=== PATIENT | male | born 1935 | race Caucasian/White ===

== ENCOUNTER 2018-11-13 10:35 | Inpatient (IN) | payer MEDICARE ==
[~2018-11-13] VITALS: Ht 177.8 cm; Wt 82.8 kg
[2018-11-13] VITALS (7 sets, daily range): BP systolic 95–121; BP diastolic 48–71
--- NOTE | 2018-11-13 10:35 | NUR ---
PT TO ROOM VIA EMS.
--- NOTE | 2018-11-13 10:43 | NUR ---
PT TO ROOM VIA EMS 911 CALLED BY HOME HEALTH NURSE FOR O2 SATS BEING IN THE 80'S PT GIVEN DUONEB AND 10 MG DEXAMETHASONE BY EMS. PT HAS BILATERAL WHEEZING, PT IS AOX4, DENIES ANY COMPLAINTS AT THIS TIME. DENIES ANY C/P, N/V OR WEAKNESS.
[2018-11-13] MEDS ORDERED: ALLOPURINOL100 MG PO (10:50)
[2018-11-13] MEDS ORDERED: TAMSULOSIN0.4 MG PO (10:50)
[2018-11-13] MEDS ORDERED: LEVOTHYROXIN50 MCG PO (10:51)
[2018-11-13] MEDS ORDERED: ROSUVASTATIN CA10 MG PO (10:51)
[2018-11-13] MEDS ORDERED: MONTELUKAST SOD10 MG PO (10:51)
[2018-11-13] MEDS ORDERED: D3-10001000 UNIT PO (10:52)
[2018-11-13] MEDS ORDERED: ATENOLOL50 MG PO (10:52)
[2018-11-13] MEDS ORDERED: ECOTRIN LOW STR81 MG PO (10:53)
[2018-11-13] MEDS ORDERED: SODIUM BICARBI650 MG PO (10:54)
[2018-11-13] MEDS ORDERED: B COMPLE2 PO (10:54)
[2018-11-13] MEDS ORDERED: ADVAIR DISK1 INH (10:55)
[2018-11-13 11:26] LABS: HEMATOCRIT 40.7 % (39.0-50.0); HEMOGLOBIN 12.6 g/dl (14.0-18.0); IMMATURE GRANULOCYTES 0.6 % (0.0-5.0); MEAN CORPUSCULAR HGB 31.6 pG CALC (26.0-32.0); NEUT# 10.92 thou/uL (1.82-7.42); RED BLOOD COUNT 3.99 mill/uL (4.70-6.10); RED CELL DISTRI WIDTH 13.8 % (11.5-15.5)
[2018-11-13 11:43] LABS: BILIRUBIN, TOTAL 0.6 mg/dL (0.0-1.4); TOTAL PROTEIN 6.3 g/dL (6.3-8.2)
--- NOTE | 2018-11-13 11:43 | NUR ---
BREATHING HAS IMPROVED, WHEEZING HAS DECREASED. NO COMPLAINTS STATED AT THIS TIME.
[2018-11-13 11:56] LABS: ALBUMIN 3.1 g/dL (3.2-5.0); CREATININE 4.5 mg/dL (0.7-1.3); POTASSIUM 5.2 mmol/l (3.5-5.1)
[2018-11-13 12:05] LABS: PROTHROMBIN TIME 10.9 SECONDS (9.0-12.5)
[2018-11-13 12:08] LABS: D-DIMER > 35.20 mg/L (0.19-0.60)
[2018-11-13 12:15] LABS: URINE BILIRUBIN - DIPSTICK NEGATIVE (NEGATIVE); URINE BLOOD DIPSTICK SMALL (NEGATIVE); URINE COLOR YELLOW; URINE GLUCOSE - DIPSTICK NEGATIVE (NEGATIVE); URINE KETONE NEGATIVE (NEGATIVE); URINE LEUK ESTERASE TRACE (NEGATIVE); URINE NITRITE - DIPSTICK NEGATIVE (Negative); URINE PROTEIN - DIPSTICK 30 mg/dL (NEG-TRACE); URINE SPECIFIC GRAVITY >=1.030; URINE UROBILINOGEN - DIPSTICK 0.2 E.U./dL (0.2)
[2018-11-13 12:22] LABS: URINE SQUAMOUS EPITHELIAL CELL FEW EPI/hpf (0-FEW)
[2018-11-13 12:23] LABS: URINE BACTERIA RARE hpf; URINE HYALINE CAST MODERATE lpf (NONE-RARE)
--- NOTE | 2018-11-13 12:42 | NUR ---
SBAR PRINTED TO FLOOR
--- NOTE | 2018-11-13 12:53 | NUR ---
PT RECONNECTED TO MONITOR, IV'S PATENT WITH MEDICATIONS RUNNING.
--- NOTE | 2018-11-13 13:50 | NUR ---
PT RESTING ON STERTCHER, AWAITING ADMISSION
--- NOTE | 2018-11-13 14:10 | NUR ---
PT BROUGHT TO [facility] [employer] FOR SCAN
--- NOTE | 2018-11-13 14:47 | NUR ---
REPORT CALLED TO ODELL PHILLIPS, ACCEPTED PT. AWAITING PT RETURN FROM [facility]
--- NOTE | 2018-11-13 14:59 | NUR ---
Admission Note Report Given to: CARIDAD Transported by: Wheelchair X Stretcher Transported with: X Nurse Transporter X Patent IV X O2 X Section Maintainer TRANSPORTED TO ICU 2 WITHOUT INCIDENT
--- NOTE | 2018-11-13 15:00 | NUR ---
male pt received to ICU bed 2 via stretcher accompanied by Abebe Salas RN in stable condition; pt transferred to bed per nursing staff/ max assist; admission assessment completed at this time; pt alert and oriented; [employer] [place]; c/c of sob and sent per HH nurse; denies pain at current (only with movement); no n/v noted; resp even and unlabored; lungs coarse post upper/ clear anterior; skin color wnl; o2 per nc; hot top liner cough noted; hr reg; strong pulses; left pedal edema noted; sr pac/pvc on monitor; abd soft with bs present; ileostomy present to left abd; pt admits to voiding without complication; no urine to inspect at this time; urinal at bedside; #20 ems site flushed and patent to lac; no redness or edema noted at site; redness noted to coccyx; scattered bruising noted to bue; leg immobilizer noted to left leg; plan of care/ meds explained; call light within reach; will continue to monitor
--- NOTE | 2018-11-13 15:50 | NUR ---
Dr Golden present at bedside at to assess pt and discuss plan of care; family present at bedside; plan of care explained; will continue to monitor pt
--- NOTE | 2018-11-13 16:10 | NUR ---
awake in bed; no apparent distress noted; pt offers no complaints; denies pain; sr pac/pvc on monitor; iv patent; fluids infusing without complication; no redness or edema noted at site; family x2 present at bedside; call light within reach; will continue to monitor
--- NOTE | 2018-11-13 16:27 | NUR ---
Dr Golden has spoken with US tech; ultrasound to be done tomorrow 11/14/18
--- NOTE | 2018-11-13 18:06 | NUR ---
awake in bed; no apparent distress noted; pt offers no complaints; iv patent; no redness or edema noted at site; sr/pvc on monitor; call light within reach
--- NOTE | 2018-11-13 19:30 | NUR ---
REPORT RECEIVED FROM ALAN BAIN. PT RESTING IN BED HIGH FOWLERS; ALERT AND ORIENTED X 4. DENIES PAIN, BUT DOES C/O SOME ABDOMINAL TENDERNESS DURING PALPATION AND DISCOMFORT WHEN HE MOVES HIS LEFT LEG; DECLINES PAIN MEDICATION AT THIS TIME. RESPIRATIONS EVEN AND UNLABORED ON OXYGEN 3L VIA NC; PT STATES THAT HIS BREATHING HAS IMPROVED. PERRLA. LUNGS HAVE EXPIRATORY WHEEZING ANTERIORLY. HEART RATE IRREGULAR; SINUS RHYTHM WITH FREQUENT PVS'S ON TELEMETRY. ABDOMEN DISTENDED AND SOFT; ILEOSTOMY TO RLQ. IMMOBILIZER TO LLE; TRACE EDEMA TO LEFT ANKLE; WEAK PEDAL PULSES BILATERALLY WITH SLUGGISH CAP REFILL. SCATTERED BRUISING TO SKIN AND SKIN TEARS TO RIGHT HAND AND RIGHT ELBOW THAT ARE HEALING AND APPROXIMATED. BRUISING TO RIGHT FRONT OF SCALP WHERE PT STATES HE HIT HIS HEAD WHEN HE FELL. PLAN OF CARE DISCUSSED. PT ENCOURAGED TO VERBALIZE CONCERNS. STATES UNDERSTANDING. SAFETY MEASURES IN PLACE. CALL LIGHT WITHIN REACH.
--- NOTE | 2018-11-13 21:16 | NUR ---
DAUGHTER, DOREEN, CALLED FOR UPDATE; CODE PROVIDED. HS MEDICATIONS ADMINISTERED.
--- NOTE | 2018-11-13 23:51 | NUR ---
PT RESTING IN SEMI FOWLERS WITH EYES CLOSED AND NO SIGNS OF DISTRESS. RESPIRATIONS EVEN AND UNLABORED ON OXYGEN. 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 IV FLUIDS INFUSING WITHOUT DIFFICULTY; IV SITE APPEARS HEALTHY. VSS. WILL CONTINUE TO MONITOR.
[2018-11-14] VITALS (13 sets, daily range): BP systolic 85–157; BP diastolic 42–92
--- NOTE | 2018-11-14 02:23 | NUR ---
PT ASLEEP; NO ACUTE CHANGES IN CONDITION. SINUS MATT 57 WITH PVCS ON WOOD SCALER. REPOSITIONING SELF IN BED. SAFETY MEASURES IN PLACE. CALL LIGHT WITHIN REACH.
--- NOTE | 2018-11-14 03:01 | NUR ---
PT AWAKE TO VOID 400 DARK YELLOW URINE IN URINAL. LARGE LOOSE BOWEL MOVEMENT EMPTIED FROM ILEOSTOMY.
--- NOTE | 2018-11-14 05:28 | NUR ---
RT AT BEDSIDE FOR EKG.
--- NOTE | 2018-11-14 06:00 | NUR ---
RADIOLOGY AT BEDSIDE FOR CXR. EMS SITE D/C'D AND NEW SITE STARTED TO RAC; LABS DRAWN AND SENT TO LAB.
[2018-11-14 06:07] LABS: HEMATOCRIT 38.2 % (39.0-50.0); IMMATURE GRANULOCYTES 0.6 % (0.0-5.0); MEAN CELL VOLUME 99.7 fL CALC (80.0-100.0); MEAN CORPUSCULAR HGB 31.3 pG CALC (26.0-32.0); MEAN CORPUSCULAR HGB CONC 31.4 g/L CALC (32.0-36.0); NEUT# 8.62 thou/uL (1.82-7.42); RED BLOOD COUNT 3.83 mill/uL (4.70-6.10); RED CELL DISTRI WIDTH 13.6 % (11.5-15.5)
--- NOTE | 2018-11-14 06:07 | NUR ---
LORTAB GIVEN FOR 6/10 LEFT KNEE PAIN WITH GOOD EFFECT.
[2018-11-14 06:20] LABS: ALBUMIN 2.8 g/dL (3.2-5.0); BILIRUBIN, TOTAL 0.4 mg/dL (0.0-1.4); CREATININE 4.4 mg/dL (0.7-1.3); TOTAL PROTEIN 5.8 g/dL (6.3-8.2)
[2018-11-14 06:34] LABS: POTASSIUM 5.7 mmol/l (3.5-5.1)
--- NOTE | 2018-11-14 07:30 | NUR ---
PT A&OX3 ABLE TO MAKE NEEDS KNOWN. SR ON TELEMETRY WITH OCCAS. PVC'S. RESPIRATIONS EVEN/UNLABORED, LS WITH WHEEZING NOTED IN UPPER LOBES. ILEOSTOMY INTACT RLQ. URINAL AT BEDSIDE. LLE IMMOBILIZER IN PLACE. PT DENIES PAIN AT THIS TIME. CALL LIGHT IN REACH. WILL MONITOR.
--- NOTE | 2018-11-14 08:00 | NUR ---
US AT BEDSIDE FOR BLE
--- NOTE | 2018-11-14 08:15 | NUR ---
DR. BOB AT BEDSIDE FOR ASSESSMENT AND TO DISCUSS PLAN OF CARE. NEW ORDERS RECIEVED.
--- NOTE | 2018-11-14 10:00 | NUR ---
ILEOSTOMY EMPTIED, CARE GIVEN. PT REPOSITIONED FOR COMFORT. WILL MONITOR.
--- NOTE | 2018-11-14 11:00 | NUR ---
DAUGHTER AT BEDSIDE.
--- NOTE | 2018-11-14 11:30 | NUR ---
DIETARY ON UNIT. PT REPOSITIONED, LUNCH TRAY SET UP.
--- NOTE | 2018-11-14 13:00 | NUR ---
DAUGHTER AND SISTER AT BEDSIDE. WILL MONITOR.
--- NOTE | 2018-11-14 14:34 | NUR ---
LAKHWINDER KAYE AT BEDSIDE WITH FAMILY
--- NOTE | 2018-11-14 14:49 | NUR ---
PT REPOSITIONED, ILEOSTOMY EMPTIED. PT TOLERATED WELL. WILL MONITOR.
--- NOTE | 2018-11-14 14:55 | NUR ---
RT AT BEDSIDE FOR TX.
--- NOTE | 2018-11-14 16:08 | NUR ---
ILEOSTOMY EMPTIED AND CHANGED. PT TOLERATED WELL. CALL LIGHT IN REACH. WILL MONITOR. MEDICAL RECORDS FROM [facility] AND [facility] FAXED OVER, DR. BOB AWARE. CALL FOR CONSULT.
--- NOTE | 2018-11-14 17:25 | NUR ---
PT REPOSITIONED, DINNER TRAY SET UP
--- NOTE | 2018-11-14 18:27 | NUR ---
FAMILY ARRIVED AT BEDSIDE. PT OFFERS NO COMPLAINTS. WILL MONITOR.
--- NOTE | 2018-11-14 19:08 | NUR ---
REPORT RECEIVED FROM ALAN ESPINOZA.
--- NOTE | 2018-11-14 19:27 | NUR ---
PT SITTING UP IN BED WATCHING TV; ALERT AND ORIENTED. DENIES PAIN. RESPIRATIONS EVEN AND UNLBAORED ON OXYGEN 3L VIA NC. PLAN OF CARE REVIEWED. PT ENCORUAGED TO VERBLIZE CONCERNS. STATES UNDERSTANDING AND REQUESTS WARM WASH CLOTH TO WASH HIS FACE; DECLINES ANY OTHER CARE AT THIS TIME. SAFETY MEASURES IN PLACE. CALL LIGHT WITHIN REACH.
--- NOTE | 2018-11-14 21:30 | NUR ---
HS MEDICATIONS ADMINISTERED; PT DECLINES PAIN MEDICATION. PT VOIDED 275ML OF URINE IN URINAL. ILEOSTOMY EMPTIED OF MODERATE SOFT BOWEL MOVEMENT. -
--- NOTE | 2018-11-14 22:22 | NUR ---
RT AT BEDSIDE FOR BREATHING TREATMENT.
[2018-11-15] VITALS (10 sets, daily range): BP systolic 119–157; BP diastolic 59–85
--- NOTE | 2018-11-15 00:18 | NUR ---
PT ASLEEP WITH NO SIGNS OF DISTRESS. RESPIRATIONS EVEN AND UNLABORED. VSS. SAFETY MEASURES IN PLACE. CALL LIGHT WITHIN REACH.
--- NOTE | 2018-11-15 04:30 | NUR ---
COMPLETE BED BATH GIVEN AND LINENS CHANGED; ORAL CARE PROVIDED AND ASSISTED PT WITH SHAVING FACE. ONLY REQUEST AT THIS TIME IS FOR CRANBERRY JUICE. NO ACUTE CHANGES IN CONDITION THROUGHOUT THE NIGHT.
--- NOTE | 2018-11-15 05:30 | NUR ---
RT AND LAB AT BEDSIDE FOR BREATHING TREATMENT AND LAB DRAW.
[2018-11-15 05:49] LABS: HEMATOCRIT 35.1 % (39.0-50.0); HEMOGLOBIN 11.2 g/dl (14.0-18.0); MEAN CORPUSCULAR HGB 31.3 pG CALC (26.0-32.0); MEAN CORPUSCULAR HGB CONC 31.9 g/L CALC (32.0-36.0); RED BLOOD COUNT 3.58 mill/uL (4.70-6.10); RED CELL DISTRI WIDTH 13.6 % (11.5-15.5)
[2018-11-15 06:07] LABS: CREATININE 3.8 mg/dL (0.7-1.3); POTASSIUM 4.6 mmol/l (3.5-5.1)
--- NOTE | 2018-11-15 06:45 | NUR ---
RECIEVED REPORT FROM ALAN BERNARD. [facility].
--- NOTE | 2018-11-15 07:30 | NUR ---
PT REPOSITIONED SELF, BREAKFAST TRAY SET UP.
--- NOTE | 2018-11-15 08:00 | NUR ---
PT A&OX3, ABLE TO MAKE NEEDS KNOWN. SR WITH OCCASIONAL PVC'S ON TELEMETRY, HR 82. PT AFEBRILE, LLE IMMOBILIZER IN PLACE. PT DENIES CP, SOB OF DISTRESS AT THIS TIME. LS WITH ANTERIOR RHONCHI RUL&RENETTA, DIMINISHED IN BASES. ADBOMEN SOFT, NON-TENDER. ILEOSTOMY RUQ INTACT. CALL LIGHT IN REACH. WILL MONITOR.
--- NOTE | 2018-11-15 08:56 | NUR ---
NOTIFIED DR. SALINAS'S OFFICE, SPOKE WITH ARETHA IN REFERENCE TO CONSULT. STATED DR. SALINAS WOULD CALL BACK.
--- NOTE | 2018-11-15 09:25 | NUR ---
DR. SALINAS CALLED, NEW ORDERS RECIEVED, NO FRACTURE TO L FEMUR NOTED ON FILMS. DISCONTINUE LLE IMMOBILIZER, PT TO FOLLOW UP WITH DR. SALINAS OFFICE Saturday11-17-18.
--- NOTE | 2018-11-15 09:30 | NUR ---
IMMOBILIZER OFF, PT TOLERATED WELL.
--- NOTE | 2018-11-15 10:47 | NUR ---
PT DAUGHTER, DOREEN CALLED WITH [employer], UPDATE GIVEN.
--- NOTE | 2018-11-15 11:30 | NUR ---
PT ASSISTED TO RECLINER, PT NEEDED MAX ASSIST, REQUESTING PAIN MEDICATION 5/10 PAIN TO L KNEE. PT 02SAT DROPPED FROM 94-97% TO 85% DURING TRANSFER, PT DENIES SOB, BUT ACCEPTS CONTINUED NEED OF 02@3LPM VIA NC. LUNCH TRAY SET UP. CALL LIGHT IN REACH, WILL MONITOR.
--- NOTE | 2018-11-15 11:58 | NUR ---
DR. BOB AND NURIA JAFFE AT BEDSIDE FOR ASSESSMENT AND TO DISCUSS PLAN OF CARE. NEW ORDERS RECIEVED.
--- NOTE | 2018-11-15 13:54 | NUR ---
PT HAS HAD X2 EPISODES OF BIGEMINY ON TELEMETRY, CONTINUES WITH INTERMITTENT PVC'S. HR- 64. DR. BOB NOTIFIED WITH PT UPDATE.
--- NOTE | 2018-11-15 14:15 | NUR ---
RT AT BEDSIDE FOR TX.
--- NOTE | 2018-11-15 15:06 | NUR ---
ASSISTED PT WITH EMPTYING ILEOSTOMY, LG BM. VOIDED IN URINAL 350 OP. PT REMAINS IN RECLINER, EXCITED TO WATCH [employer] GAME WITH FAMILY AT BEDSIDE. CALL LIGHT IN REACH. WILL MONITOR.
--- NOTE | 2018-11-15 16:07 | NUR ---
PT SISTER, HOWARD ARRIVED AT BEDSIDE FOR VISIT. BROUGHT PT [employer] FOR DINNER. CALL LIGHT IN REACH. WILL MONITOR.
--- NOTE | 2018-11-15 18:07 | NUR ---
SISTER REMAINS AT BEDSIDE. PT TRANSFERRED TO MS2 RM#[id number]. PT MEDICATED WITH PAIN MEDICATION FOR 8/10 PAIN IN L KNEE PER REQUEST PRIOR TO TRANSFER. WILL MONITOR.
--- NOTE | 2018-11-15 20:10 | NUR ---
PT AWAKE RESTING IN BED WATCHING T.V. VSS. RESP EVEN AND UNLABORED. O2 SAT 96% ON O2 N/C AT 2L. NO DISTRESS NOTED. PT IS ALERT AND ORIENTED X3. LUNGS REVEAL WHEEZES IN ALL LOBES. ABD SOFT WITH BOWEL SOUNDS PRESENT. NO LOWER EXT EDEMA NOTED. PEDAL PUSLES PALPATED BILAT. HEPLOCK PATENT IN RT A.C AND FLUSHED WITHOUT ANY DIFFICULTY. TELE INTACT. LEFT FOREHEAD ABRASION NOTED. SMALL HEALED SKIN TEAR RT HAND. RT ABD ILIOSTOMY SMALL AMT OF DRAINAGE NOTED. PT OFFERS NO COMPLAINTS. FREQUENT ROUNDS MADE. CALL CLARKE WITHIN REACH.
--- NOTE | 2018-11-15 22:15 | NUR ---
PT AWAKE RESTING IN BED. VOIDED 400CC OF CLEAR YELLOW URINE. O2 N/C ON AT 2L. HEPLOCK PATENT. FREQUENT ROUNDS MADE. CALL CLARKE WITHIN REACH.
--- NOTE | 2018-11-16 00:25 | NUR ---
RESTING IN BED WITH EYES CLOSED. NO DISTRESS NOTED. O2 N/C ON AT 2L. TELE INTACT. FREQUENT ROUNDS MADE. CALL CLARKE WITHIN REACH.
[2018-11-16 04:00] VITALS: BP 124/57
--- NOTE | 2018-11-16 04:13 | NUR ---
PT RESTING IN BED WITH EYES CLOSED. RESP EVEN AND UNLABORED. NO DISTRESS NOTED. HEPLOCK PATENT. TELE INTACT. ASSESSMENT UNCHANGED. FREQUENT ROUNDS MADE. CALL CLARKE WITHIN REACH.
[2018-11-16 06:00] LABS: ALBUMIN 2.6 g/dL (3.2-5.0); CREATININE 3.4 mg/dL (0.7-1.3); POTASSIUM 4.6 mmol/l (3.5-5.1)
--- NOTE | 2018-11-16 07:00 | NUR ---
RECIEVED REPORT FROM NIGHT NURSE. PT RESTING IN BED WATCHING TV. NO NEEDS AT THIS TIME. CALL CLARKE IN REACH. WILL CONTINUE TO MONITOR
[2018-11-16 07:57] VITALS: BP 134/70
--- NOTE | 2018-11-16 07:57 | NUR ---
PT UP TO CHAIR AT THIS TIME. PT GETTING WASHED UP BY 1 ASSIST. ASSESMENT COMPLETED AT THIS TIME. BRUSING NOTED TO BUTTOCKS. SNORUS LUNG SOUNDS NOTED. ALONG WITH NON PRODUCTIVE COUGH. ILLEOSTOMY CHANGED AT THIS TIME AND VS OBTAIN. NO NEEDS AT THIS TIME. CALL CLARKE IN REACH. WILL CONTINUE TO MONITOR.
--- NOTE | 2018-11-16 11:30 | NUR ---
ASSISTED PT INTO BED FROM RECLINER X2 ASSIST. RESPIRATIONS EVEN AND UNLABORED ON O2 @ 3L VIA NC. PT DENIES ANY PAIN OR DISCOMFORT. EMPTIED 150ML OF LOOSE STOOL FROM ILEOSTOMY. SAFETY PRECAUTIONS IN PLACE WILL CONTINUE TO MONITOR.
--- NOTE | 2018-11-16 12:00 | NUR ---
PT REMAINS UP TO CHAIR PT WATCHING TV. NO NEEDS AT THIS TIME. CALL CLARKE IN REACH. WILL CONTINUE TO MONITOR.
[2018-11-16 15:09] VITALS: BP 147/64
--- NOTE | 2018-11-16 16:00 | NUR ---
PT REMAINS IN CHAIR, PLAYING ON HIS PHONE. O2 @ 3L. NO NEEDS AT THIS TIME. CALL CLARKE IN REACH. WILL CONTINUE TO MONITOR.
[2018-11-16 19:15] VITALS: BP 133/60
--- NOTE | 2018-11-16 21:13 | NUR ---
PT RESTING IN RECLINER AT BEDSIDE. ALERT AND ORIENTED. RESPIRATIONS EVEN AND UNLABORED ON O2 @ 3L VIA NC. WHEEZES NOTED THROUGHOUT LUNGS. PEDAL PULSES STRONG. PT DENIES ANY PAIN OR DISCOMFORT AT THIS TIME. 200 ML EMPTIED FROM ILEOSTOM. SAFETY PRECAUTIONS IN PLACE. WILL CONTINUE TO MONITOR.
[2018-11-16 23:23] VITALS: BP 135/53
[2018-11-17 04:33] VITALS: BP 130/69
--- NOTE | 2018-11-17 04:35 | NUR ---
PT RESTING IN BED. RESPIRATIONS EVEN AND UNLABORED ON RA. NO S/S OF DISTRESS AT THIS TIME SAFETY PRECAUTIONS IN PLACE. WILL CONTINUE TO MONITOR.
[2018-11-17 05:29] LABS: ALBUMIN 2.5 g/dL (3.2-5.0); CREATININE 3.2 mg/dL (0.7-1.3); POTASSIUM 4.7 mmol/l (3.5-5.1)
--- NOTE | 2018-11-17 07:10 | NUR ---
REPORT RECEIVED FROM DEXTERRN;PT RESTING IN SEMI FOWLERS POSITION;INTRODUCED SELF TO PT AND POC DISCUSSED;RESPIRATIONS EVEN AND UNLABORED ON OXYGEN @ 3L VIA NC;TELE MONITORING IN PLACE;PT DENIES ANY CURRENT PAIN OR DISCOMFORTS;ENCOURAGED PT TO CALL FOR ASSISTANCE IF NEEDED;FALL PRECAUTIONS NOTED WITH BED IN THE LOWEST POSITION AND CALL LIGHT IN REACH;WILL CONTINUE TO MONITOR
--- NOTE | 2018-11-17 08:25 | NUR ---
PT OOB RESTING IN RECLINER,A&O X3;VS OBTAINED AND ASSESSMENT COMPLETED;PT DENIES ANY CURRENT PAIN OR DISCOMFORTS,PAIN SCALE AND REPORTING EDUCATED;RESPIRATIONS SHALLOW ON O2 @ 3L VIA NC;ABDOMEN SOFT ON PALPATION AND ACTIVE IN ALL 4 QUADRANTS;ILLEOSOTMY NOTED WITH SMALL AMOUNT OF BROWN/LOOSE STOOL;WEAK PEDAL PULSES WITH +2 EDEMA NOTED TO BLE,ENCOURAGED ELEVATION;SKIN INTACT;TELE MONITORING IN PLACE#20G TO RAC FLUSHED AND PATENT,ABX TO BE HUNG;PT DENIES ANY ADDITIONAL NEEDS AT THIS TIME AND IS ENCOURAGED TO CALL FOR ASSISTANCE IF NEEDED;FALL PRECAUTIONS IN PLACE WITH CALL LIGHT IN REACH;WILL CONTINUE TO MONITOR
[2018-11-17 08:26] VITALS: BP 167/86
[2018-11-17 08:29] VITALS: BP 167/86
--- NOTE | 2018-11-17 08:38 | NUR ---
PHYSICAL THERAPY AT BEDSIDE AMBULATING PATIENT.
[2018-11-17] MEDS ORDERED: DOXYCYCL HYC100 MG PO (11:10)
[2018-11-17] MEDS ORDERED: PREDNISONE10 MG PO (11:10)
[2018-11-17] MEDS ORDERED: TRAMADOL HCL50 MG PO (11:10)
--- NOTE | 2018-11-17 11:10 | NUR ---
AT BEDSIDE DISCUSSING POC INCLUDING PLANS TO D/C HOME WITH HOME HEALTH,PT VEBALIZES UNDERSTANDING.
--- NOTE | 2018-11-17 11:30 | NUR ---
PT OOB RESTING IN RECLINER WITH VISITOR AT BEDSIDE;RESPIRATIONS REMAIN EVEN AND UNLABORED ON O2 @ 3L VIA NC;PT DENIES ANY CURRENT PAIN OR DISCOMFORTS;TELE MONITORING IN PLACE;IV SITE TO RAC PATENT;ASSESSMENT REMAINS UNCHANGED AT THIS TIME;PT RE-EDUCATED TO CALL FOR ASSISTANCE IF NEEDED;FALL PRECAUTIONS IN PLACE WITH CALL LIGHT IN REACH;WILL CONTINUE TO MONITOR
--- NOTE | 2018-11-17 14:40 | NUR ---
[facility] AT BEDSIDE DELIVERING HOME OXYGEN.
--- NOTE | 2018-11-17 14:40 | NUR ---
DISHCARGE INSTRUCTIONS REVIEWED WITH PATIENT. PATIENT VERBALIZED UNDERSTANDING.
--- NOTE | 2018-11-17 14:45 | NUR ---
IV site discontinued, cath intact. No edema , no redness, voices no discomfort.
--- NOTE | 2018-11-17 15:12 | NUR ---
Discharge instructions given. Patient verbalizes understanding of same. Discharged in stable condition via Wheelchair to Home with family. All belongings sent with pt. Pt discharged to lobby via wheelchair in stable condition accompanied by volbelgicateer and writter.
== END 2018-11-17 15:13 | disposition home health service (06) | DRG 189 ==
LOC: ED 10:35 → ED-I 12:27 → ED 12:43 → ICU 12:44 → MS2 11-15 18:32
PROVIDERS: ADMIT Internal Medicine; ATTEND Internal Medicine
DX: J96.21 Acute and chronic respiratory failure with hypoxia (principal); J44.1 Chronic obstructive pulmonary disease with (acute) exacerbation; N17.9 Acute kidney failure, unspecified; N18.4 Chronic kidney disease, stage 4 (severe); E87.4 Mixed disorder of acid-base balance; E86.0 Dehydration; I95.9 Hypotension, unspecified; E87.5 Hyperkalemia; N40.0 Benign prostatic hyperplasia without lower urinary tract symptoms; Z87.891 Personal history of nicotine dependence; Z90.49 Acquired absence of other specified parts of digestive tract; Z93.2 Ileostomy status; Z99.81 Dependence on supplemental oxygen
CPT/HCPCS: A9540; A9567; J1956

== ENCOUNTER 2018-11-19 11:43 | Emergency (ER) | payer MEDICARE ==
[2018-11-19] VITALS (9 sets, daily range): BP systolic 85–107; BP diastolic 51–81
[~2018-11-19] VITALS: Ht 177.8 cm; Wt 90.0 kg
[~2018-11-19 11:43] MED LIST: ADVAIR DISK1 INH; ALLOPURINOL100 MG PO; ATENOLOL50 MG PO; B COMPLE2 PO; D3-10001000 UNIT PO; DOXYCYCL HYC100 MG PO; ECOTRIN LOW STR81 MG PO; LEVOTHYROXIN50 MCG PO; MONTELUKAST SOD10 MG PO; PREDNISONE10 MG PO; ROSUVASTATIN CA10 MG PO; SODIUM BICARBI650 MG PO; TAMSULOSIN0.4 MG PO; TRAMADOL HCL50 MG PO
[2018-11-19 12:24] LABS: HEMATOCRIT 35.3 % (39.0-50.0); HEMOGLOBIN 11.1 g/dl (14.0-18.0); IMMATURE GRANULOCYTES 3.3 % (0.0-5.0); MEAN CELL VOLUME 101.4 fL CALC (80.0-100.0); MEAN CORPUSCULAR HGB 31.9 pG CALC (26.0-32.0); MEAN CORPUSCULAR HGB CONC 31.4 g/L CALC (32.0-36.0); NEUT# 10.22 thou/uL (1.82-7.42); RED BLOOD COUNT 3.48 mill/uL (4.70-6.10); RED CELL DISTRI WIDTH 14.2 % (11.5-15.5)
[2018-11-19 12:48] LABS: ALBUMIN 2.4 g/dL (3.2-5.0); CREATININE 2.8 mg/dL (0.7-1.3)
[2018-11-19 12:49] LABS: BILIRUBIN, TOTAL 0.6 mg/dL (0.0-1.4); POTASSIUM 5.2 mmol/l (3.5-5.1)
[2018-11-19 13:43] LABS: HEMATOCRIT 36.3 % (39.0-50.0); HEMOGLOBIN 11.2 g/dl (14.0-18.0)
== END 2018-11-19 14:32 | disposition short-term general hospital (02) ==
LOC: ED 11:43
PROVIDERS: Family Medicine
PROC: 30233N1 Transfusion of Nonautologous Red Blood Cells into Peripheral Vein, Percutaneous Approach (ICD-10-PCS; principal; 2018-11-19)
PROC: 30233N1 Transfusion of Nonautologous Red Blood Cells into Peripheral Vein, Percutaneous Approach (ICD-10-PCS; 2018-11-19)
PROC: 30233N1 Transfusion of Nonautologous Red Blood Cells into Peripheral Vein, Percutaneous Approach (ICD-10-PCS; 2018-11-19)
PROC: 05HM33Z Insertion of Infusion Device into Right Internal Jugular Vein, Percutaneous Approach (ICD-10-PCS; 2018-11-19)
DX: K92.1 Melena (principal); J44.9 Chronic obstructive pulmonary disease, unspecified; Z99.81 Dependence on supplemental oxygen; Z93.2 Ileostomy status
CPT/HCPCS: J2354; P9016; S0164